=== PATIENT | male | born 1945 | race Caucasian/White ===

== ENCOUNTER 2019-08-13 17:10 | Observation (INO) ==
[2019-08-13 18:31] LABS: Basophils % 1.1 %; Eosinophils # 0.3 K/mcL (0.0-0.6); Eosinophils % 6.6 %; Hematocrit 29.8 % (37.5-50.1); Hemoglobin 10.1 g/dL (12.9-16.9); Immature Granulocytes % 0.3 % (0-4); Lymphocytes % 30.2 %; Mean Corpuscular HGB Conc 33.9 g/dL (31.6-35.5); Mean Corpuscular Hemoglobin 31.4 pg (28.0-33.3); Mean Corpuscular Volume 92.5 fL (83.0-100.0); Mean Platelet Volume 12.7 fL (9.4-12.4); Monocytes # 0.2 K/mcL (0.0-1.3); Monocytes % 5.3 %; Red Blood Count 3.22 M/mcL (4.19-5.50); Red Cell Distribution Width 14.8 % (11.5-14.5); Segmented Neutrophils % 56.5 %; White Blood Count 3.8 K/mcL (4.3-11.1)
[2019-08-13 18:33] LABS: INR 2.1
[2019-08-13 18:56] LABS: Lymphocytes # 1.2 K/mcL (0.6-4.6)
[2019-08-13 18:57] LABS: Neutrophils # 2.2 K/mcL (1.6-8.9); Platelet Count 87 K/mcL (140-400)
[2019-08-13 18:59] LABS: BUN/Creatinine Ratio 15 (6-26); Blood Urea Nitrogen 46 mg/dL (8-23); Calcium 8.2 mg/dL (8.6-10.3); Carbon Dioxide 24 mEq/L (23-29); Chloride 108 mEq/L (98-107); Glucose 141 mg/dL (70-105); Osmolality,Calculated 300 (280-300); Potassium 4.9 mEq/L (3.5-5.1); Sodium 138 mEq/L (136-145); Troponin I < 0.03 ng/mL (< 0.04); eGFR For African Americans 25 (> 60); eGFR For Non-African Americans 21 (> 60)
[2019-08-13 19:12] LABS: Thyroid Stimulating Hormone 3.186 mcIU/mL (0.340-5.600)
[2019-08-13] MEDS ORDERED: 0.9 % Sodium Chloride 1,000 ML IVC ONE (20:26)
[2019-08-13] MEDS ORDERED: 0.9 % Sodium Chloride 1,000 ML IVC SCH (23:45)
[2019-08-13] MEDS ORDERED: Naloxone 0.4 MG/ML INJ IVP PRN (23:58)
[2019-08-13] MEDS ORDERED: Ondansetron 4 MG/2 ML VIAL IVP PRN (23:58)
[2019-08-14] MEDS ORDERED: D5% in Water 1,000 ML IVC PRN ×2 (00:01→00:15)
[2019-08-14] MEDS ORDERED: *HR* Dextrose 50 % in Water (Syg) 50 ML SYRINGE IVP PRN ×2 (00:01→00:15)
[2019-08-14] MEDS ORDERED: Dextrose Gel 15 GM/37.5 ML TUBE PO PRN ×4 (00:01→00:15)
[2019-08-14] MEDS ORDERED: Fluticasone Propionate Nasal 50 MCG/SPRAY BOTTLE NS PRN (00:02)
[2019-08-14] MEDS: Insulin LISPRO 300 UNITS/3 ML VIAL SQ SCH ×5 (01:00→20:59)
[2019-08-14 05:22] LABS: Hemoglobin 8.9 g/dL (12.9-16.9); Immature Granulocytes % 0.3 % (0-4); Mean Corpuscular Volume 95.2 fL (83.0-100.0)
[2019-08-14 05:24] LABS: Basophils % 0.6 %; Eosinophils # 0.2 K/mcL (0.0-0.6); Eosinophils % 5.6 %; Hematocrit 27.7 % (37.5-50.1); Immature Platelets 5.8 % (1.1-6.1); Lymphocytes # 1.3 K/mcL (0.6-4.6); Lymphocytes % 41.1 %; Mean Corpuscular HGB Conc 32.1 g/dL (31.6-35.5); Mean Corpuscular Hemoglobin 30.6 pg (28.0-33.3); Mean Platelet Volume 12.4 fL (9.4-12.4); Monocytes # 0.3 K/mcL (0.0-1.3); Monocytes % 7.8 %; Neutrophils # 1.4 K/mcL (1.6-8.9); Red Blood Count 2.91 M/mcL (4.19-5.50); Red Cell Distribution Width 14.6 % (11.5-14.5); Segmented Neutrophils % 44.6 %; White Blood Count 3.2 K/mcL (4.3-11.1)
[2019-08-14 05:37] LABS: Calcium 7.9 mg/dL (8.6-10.3); Magnesium 1.7 mg/dL (1.6-2.6); Potassium 4.6 mEq/L (3.5-5.1)
[2019-08-14 05:44] LABS: Platelet Count 73 K/mcL (140-400)
[2019-08-14 05:45] LABS: Platelet Estimate Marked Decrease (Normal)
[2019-08-14] MEDS: Pregabalin 50 MG CAPSULE PO SCH (08:54)
[2019-08-14] MEDS: Apixaban 5 MG TABLET PO SCH ×2 (08:55→21:00)
[2019-08-14] MEDS: Cholecalciferol (D-3) 1,000 UNIT (25MCG) TABLET PO SCH (08:55)
[2019-08-14] MEDS: amLODIPine 5 MG TABLET PO SCH (08:55)
[2019-08-14] MEDS: Isosorbide MONOnitrate (24 HR) 30 MG TAB.ER.24H PO SCH (08:55)
[2019-08-14] MEDS ORDERED: Famotidine 20 MG TABLET PO SCH (09:00)
[2019-08-14] MEDS ORDERED: Ipratropium/Albuterol Neb 3 ML IH PRN (16:48)
[2019-08-14] MEDS ORDERED: Pregabalin 50 MG CAPSULE PO SCH ×2 (18:00→18:45)
[2019-08-14] MEDS ORDERED: Insulin DETEMIR 100 UNIT/ML X5UNITS SQ SCH (20:00)
[2019-08-14] MEDS ORDERED: Insulin LISPRO 300 UNITS/3 ML VIAL SQ SCH (21:00)
[2019-08-15 03:54] LABS: Mean Corpuscular HGB Conc 32.2 g/dL (31.6-35.5); Red Cell Distribution Width 14.8 % (11.5-14.5)
[2019-08-15 03:56] LABS: Basophils % 0.7 %; Eosinophils # 0.2 K/mcL (0.0-0.6); Hematocrit 27.6 % (37.5-50.1); Hemoglobin 8.9 g/dL (12.9-16.9); Lymphocytes # 1.3 K/mcL (0.6-4.6); Lymphocytes % 43.3 %; Mean Corpuscular Hemoglobin 31.1 pg (28.0-33.3); Mean Corpuscular Volume 96.5 fL (83.0-100.0); Mean Platelet Volume 12.5 fL (9.4-12.4); Monocytes # 0.2 K/mcL (0.0-1.3); Neutrophils # 1.3 K/mcL (1.6-8.9); Red Blood Count 2.86 M/mcL (4.19-5.50)
[2019-08-15 04:00] LABS: Platelet Count 73 K/mcL (140-400)
[2019-08-15 04:15] LABS: % Iron Saturation 16 % (20-55); Calcium 7.9 mg/dL (8.6-10.3); Iron 46 mcg/dL (65-175); Potassium 4.5 mEq/L (3.5-5.1); Transferrin 211 mg/dL (203-362)
[2019-08-15 04:33] LABS: Ferritin 50 ng/mL (20-250)
[2019-08-15 04:39] LABS: Folate 9.6 ng/mL (3.0-16.0)
[2019-08-15 07:14] LABS: Estimated Average Glucose 126 mg/dl
[2019-08-15] MEDS: Insulin LISPRO 300 UNITS/3 ML VIAL SQ SCH ×2 (07:37→13:17)
[2019-08-15] MEDS: Cholecalciferol (D-3) 1,000 UNIT (25MCG) TABLET PO SCH (08:25)
[2019-08-15] MEDS: Isosorbide MONOnitrate (24 HR) 30 MG TAB.ER.24H PO SCH (08:25)
[2019-08-15] MEDS: Pregabalin 50 MG CAPSULE PO SCH (08:25)
[2019-08-15] MEDS: Apixaban 5 MG TABLET PO SCH (08:25)
[2019-08-15] MEDS: amLODIPine 5 MG TABLET PO SCH (08:26)
[2019-08-15] MEDS ORDERED: Iron Sucrose Complex 250 MG in 0.9 % Sodium Chloride 250 ML IVPB SCH (09:00)
[2019-08-15] MEDS ORDERED: Finasteride 5 MG TABLET PO SCH (09:00)
[2019-08-15] MEDS ORDERED: Famotidine 20 MG TABLET PO SCH (09:00)
[2019-08-15 11:16] VITALS: BP 153/72
== END 2019-08-15 15:05 | disposition home or self-care (01) ==
LOC: 2NENU 17:10 → EMEROOARM 17:10 → SUATTDRO 21:24 → 2NENU 21:50
PROVIDERS: ADMIT Internal Medicine; ATTEND Pharmacist